=== PATIENT | female | born 1955 | race Caucasian/White ===

== ENCOUNTER → 2016-11-22 | Outpatient (CLI) | payer BC ==
[2014-11-11 11:03] VITALS: BP 120/62
== END ==
LOC: RAD 14:08
PROVIDERS: ATTEND Internal Medicine
DX: N64.59 Other signs and symptoms in breast (principal)
CPT/HCPCS: 76642

== ENCOUNTER 2022-09-04 12:09 | Observation (INO) ==
[2022-09-04] MEDS ORDERED: TUSSIONEX PENNKINETIC SUSP PO PRN (13:38)
[2022-09-04 14:14] VITALS: BMI 27.1
[2022-09-04 14:16] LABS: BASOPHILS % (AUTO) 0.6 % (0.2-1.0); EOSINOPHILS # (AUTO) 0.5 x10^3/uL (0.0-0.2); EOSINOPHILS % (AUTO) 9.3 % (0.9-2.9); HEMATOCRIT 37.3 % (36.0-47.0); HEMOGLOBIN 12.7 g/dL (12.0-16.0); LYMPHOCYTES # (AUTO) 2.8 X10^3/uL (1.3-2.9); LYMPHOCYTES % (AUTO) 49.2 % (21.0-51.0); MEAN CORPUSCULAR HEMOGLOBIN 29.8 pg (27.0-34.0); MEAN CORPUSCULAR HGB CONC 33.9 g/dL (33.0-35.0); MEAN PLATELET VOLUME 7.2 fL (7.4-11.0); MONOCYTES # (AUTO) 0.6 x10^3/uL (0.3-0.8); MONOCYTES % (AUTO) 10.1 % (0.0-13.0); NEUTROPHILS # (AUTO) 1.7 x10^3/uL (2.2-4.8); NEUTROPHILS % (AUTO) 30.8 % (42.0-75.0); RED BLOOD COUNT 4.24 X10^6/uL (3.5-5.4); WHITE BLOOD COUNT 5.6 X10^3/uL (3.6-10.0)
[2022-09-04] MEDS ORDERED: NS 1/2 1,000 ML IV 1,000 ML IV ONE (14:21)
[2022-09-04 14:33] LABS: ALANINE AMINOTRANSFERASE 16 Units/L (12-78); ALBUMIN 3.2 g/dL (3.4-5.0); ALKALINE PHOSPHATASE 66 Units/L (46-116); ASPARTATE AMINO TRANSFERASE 13 Units/L (15-37); BLOOD UREA NITROGEN 12 mg/dL (7-18); CALCIUM 8.5 mg/dL (8.5-10.1); CARBON DIOXIDE 28.3 mmol/L (21-32); CHLORIDE 105 mmol/L (98-107); COR CA(FOR HYPOALB) 9.1 mg/dL (8.5-10.1); CREATININE 0.68 mg/dL (0.55-1.02); SODIUM 141 mmol/L (136-145); TOTAL PROTEIN 6.4 g/dL (6.4-8.2); eGFR NON BLACK RACES > 60 (>60)
[2022-09-04] MEDS: VSL#3 PO SCH (14:53)
[2022-09-04] MEDS: NS 1/2 1,000 ML IV 1,000 ML IV SCH (14:53)
[2022-09-04] MEDS: ROBITUSSIN DM PO SCH ×3 (14:53→20:39)
[2022-09-04] MEDS: LEVAQUIN PREMIX IV 750 MG 750 MG/150 ML BAG IV SCH (14:54)
[2022-09-04] MEDS: PROVENTIL NEB TX 0.083% 2.5MG/ 3ML NEB SCH ×2 (16:25→20:27)
[2022-09-04] MEDS: PULMICORT NEB TX 0.5 MG NEB SCH (20:27)
[2022-09-04] MEDS: KLONOPIN TAB 1 MG PO SCH (20:39)
[2022-09-04] MEDS: PROTONIX INJ 40 MG VIAL IVP SCH (20:39)
[2022-09-05] MEDS ORDERED: K-DUR TAB 20 MEQ PO PRN (00:44)
[2022-09-05] MEDS ORDERED: KLOR-CON PO PRN (00:44)
[2022-09-05] MEDS ORDERED: K-RIDER 10 MEQ/NS 100 ML 10 MEQ/100 ML BAG IV PRN (00:44)
[2022-09-05] MEDS ORDERED: NS 1/2 1,000 ML IV 1,000 ML IV ONE ×2 (04:12→14:24)
[2022-09-05 04:53] LABS: BASOPHILS % (AUTO) 0.3 % (0.2-1.0); EOSINOPHILS # (AUTO) 0.4 x10^3/uL (0.0-0.2); EOSINOPHILS % (AUTO) 6.6 % (0.9-2.9); HEMATOCRIT 33.4 % (36.0-47.0); HEMOGLOBIN 11.6 g/dL (12.0-16.0); LYMPHOCYTES # (AUTO) 2.5 X10^3/uL (1.3-2.9); LYMPHOCYTES % (AUTO) 45.9 % (21.0-51.0); MEAN CORPUSCULAR HEMOGLOBIN 30.2 pg (27.0-34.0); MEAN CORPUSCULAR HGB CONC 34.7 g/dL (33.0-35.0); MEAN CORPUSCULAR VOLUME 87.1 fL (80.0-100.0); MEAN PLATELET VOLUME 7.4 fL (7.4-11.0); MONOCYTES # (AUTO) 0.4 x10^3/uL (0.3-0.8); MONOCYTES % (AUTO) 8.2 % (0.0-13.0); NEUTROPHILS # (AUTO) 2.1 x10^3/uL (2.2-4.8); RED BLOOD COUNT 3.83 X10^6/uL (3.5-5.4); RED CELL DISTRIBUTION WIDTH 13.7 % (11.6-16.5); WHITE BLOOD COUNT 5.5 X10^3/uL (3.6-10.0)
[2022-09-05] MEDS: NS 1/2 1,000 ML IV 1,000 ML IV SCH ×2 (05:00→17:14)
[2022-09-05 05:05] LABS: ALANINE AMINOTRANSFERASE 15 Units/L (12-78); ALBUMIN 2.8 g/dL (3.4-5.0); ALKALINE PHOSPHATASE 57 Units/L (46-116); ASPARTATE AMINO TRANSFERASE 12 Units/L (15-37); BLOOD UREA NITROGEN 7 mg/dL (7-18); CALCIUM 8.1 mg/dL (8.5-10.1); CARBON DIOXIDE 29.5 mmol/L (21-32); CHLORIDE 107 mmol/L (98-107); COR CA(FOR HYPOALB) 9.1 mg/dL (8.5-10.1); CREATININE 0.75 mg/dL (0.55-1.02); SODIUM 142 mmol/L (136-145); TOTAL PROTEIN 5.8 g/dL (6.4-8.2); eGFR NON BLACK RACES > 60 (>60)
[2022-09-05] MEDS: MAGNESIUM SULFATE 1 GRAM/100 mL PREMIX 1 G/100 ML BAG IV PRN ×2 (05:57→16:24)
--- NOTE | 2022-09-05 06:55 | RAD ---
HISTORYCough, pneumoniaSTUDYChest AP [id number]/26/2021FINDINGSHear t size is normal. Karlee are normal. Lung dennis are clear. No pleural effusions are identified. Bony thorax is unremarkable.IMPRESSIONNo significant abnormality identifiedElectronically signed by: TRISHA FARIAS (Sep 05, 2022 06:54:06)
--- NOTE | 2022-09-05 07:08 | RAD ---
HISTORYShortness of breathSTUDYChest AP [id number]/28/2023FINDINGSHear t size is normal. Karlee are normal. Lung dennis are clear. No pleural effusions are identified. Bony thorax is unremarkable.IMPRESSIONNo significant abnormality identifiedElectronically signed by: TRISHA FARIAS (Sep 05, 2022 07:06:54)
[2022-09-05] MEDS: VSL#3 PO SCH (08:02)
[2022-09-05] MEDS: LEVAQUIN PREMIX IV 750 MG 750 MG/150 ML BAG IV SCH (08:02)
[2022-09-05] MEDS: PROTONIX INJ 40 MG VIAL IVP SCH ×2 (08:02→20:15)
[2022-09-05] MEDS: ROBITUSSIN DM PO SCH ×4 (08:02→20:14)
[2022-09-05] MEDS: PULMICORT NEB TX 0.5 MG NEB SCH ×2 (08:30→20:44)
[2022-09-05] MEDS: PROVENTIL NEB TX 0.083% 2.5MG/ 3ML NEB SCH ×4 (08:31→20:44)
[2022-09-05] MEDS: LOVENOX INJ 40 MG SYR SC SCH (10:38)
--- NOTE | 2022-09-05 11:44 | DR.UPDATE ---
H&P Update Prescription drug monitoring program results: PDMP reviewed and no concerns identified H&P Reviewed: Yes Any changes to H&P?: Yes Changes noted:: WAS A DIRECT ADMISSION FOR TREATMENT OF PNEUMONIA, FAILED OUTPATIENT TREATMENT. SHE INITIALLY PRESENTED TO THE OFFICE ON 08/20 WITH COMPLAINTS OF PERSISTENT COUGH AND SHORTNESS OF BREATH. SHE WAS PRESCRIBED AUGMENTIN 875-125MG BID X 14 DAYS, A MEDROL DOSEPACK, AND AN INHALER. SHE WAS EVALUATED IN THE OFFICE ON 09/03/22 DUE TO WORSENING COUGH AND SHORTNESS OF BREATH. A CHEST CTA WAS OBTAINED AT THAT TIME AND REVEALED: Mild ground-glass infiltrates in the right upper lobe, correlate for pneumonia. No acute pulmonary embolism. SHE FOLLOWED UP IN THE OFFICE ON 09/04/22. DECISION WAS MADE AT THAT TIME TO ADMIT PATIENT TO THE HOSPITAL DUE TO FAILED OUTPATIENT TREATMENT OF PNEUMONIA. HER PMH INCLUDES: HYPERLIPIDEMIA, INSOMNIA, GERD, HYPOTHYROIDISM, COPD. ON ARRIVAL TO THE HOSPITAL, VITALS WERE: 98.1-69-20-98%-138/67. LABS WERE OBTAINED. WBC 5.6, RBC 4.24, HGB 12.7, HCT 37.3, PLT COUNT 234, SODIUM 141, POTASSIUM 3.5, CHLORIDE 105, BUN 12, CREATININE 0.68, GLUCOSE 77, CALCIUM 8.5, TOTAL BILI 0.40, AST 13, ALT 16, ALK PHOS 66, TOTAL PROTEIN 6.4, ALBUMIN 3.2. A RESPIRATORY VIRAL PANEL WAS SET UP. BLOOD AND SPUTUM CULTURES WERE ALSO SET UP. SHE WAS STARTED ON NORMAL SALINE AT 75 ML/HR, LEVAQUIN 750MG IV DAILY, PROTONIX 40MG IV BID, ROBITUSSIN DM 10ML QID, TUSSIONEX 5ML Q12H PRN, PULMICORT NEB TX BID, PROVENTIL NEBS QID, LOVENOX 40MG SC DAILY, AND THE POTASSIUM AND MAGNESIUM PROTOCOLS. WE WILL REVIEW HER HOME MEDICATIONS AND RESUME APPROPRIATE. OTHERWISE, WE WILL FOLLOW-UP WITH AM LABS AND CONTINUE TO MONITOR. TIME SPENT ON CLINICAL ASSESSMENT, REVIWING LABS AND IMAGING, DECISION MAKING, AND DOCUMENTATION GREATER THAN 75 MINUTES. Patient was examined?: Yes
[2022-09-05] MEDS: FLONASE NASAL SPRAY ENOSTRIL SCH ×2 (13:43→20:15)
[2022-09-05] MEDS: LINZESS PO SCH (13:45)
[2022-09-05] MEDS: SYNTHROID 50 mcg TAB PO SCH (13:45)
[2022-09-05] MEDS: VITAMIN D3 125 mcg (5,000 UNITS) PO SCH (13:45)
[2022-09-05] MEDS: PEPCID TAB 20 MG PO SCH ×2 (13:45→20:15)
[2022-09-05] MEDS ORDERED: TYLENOL 325 MG TAB PO PRN (13:54)
[2022-09-05] MEDS ORDERED: CRESTOR TAB 10 MG PO ONE (19:32)
[2022-09-05] MEDS: KLONOPIN TAB 1 MG PO SCH (20:15)
[2022-09-05] MEDS ORDERED: CRESTOR TAB 10 MG PO SCH (21:00)
[2022-09-06 05:02] LABS: BASOPHILS % (AUTO) 0.2 % (0.2-1.0); EOSINOPHILS # (AUTO) 0.2 x10^3/uL (0.0-0.2); EOSINOPHILS % (AUTO) 5.2 % (0.9-2.9); HEMATOCRIT 34.5 % (36.0-47.0); LYMPHOCYTES # (AUTO) 2.4 X10^3/uL (1.3-2.9); LYMPHOCYTES % (AUTO) 52.7 % (21.0-51.0); MEAN CORPUSCULAR HEMOGLOBIN 30.6 pg (27.0-34.0); MEAN CORPUSCULAR HGB CONC 34.7 g/dL (33.0-35.0); MEAN CORPUSCULAR VOLUME 88.2 fL (80.0-100.0); MEAN PLATELET VOLUME 7.4 fL (7.4-11.0); MONOCYTES # (AUTO) 0.3 x10^3/uL (0.3-0.8); MONOCYTES % (AUTO) 7.4 % (0.0-13.0); NEUTROPHILS # (AUTO) 1.6 x10^3/uL (2.2-4.8); NEUTROPHILS % (AUTO) 34.5 % (42.0-75.0); RED BLOOD COUNT 3.91 X10^6/uL (3.5-5.4); RED CELL DISTRIBUTION WIDTH 13.6 % (11.6-16.5); WHITE BLOOD COUNT 4.6 X10^3/uL (3.6-10.0)
[2022-09-06 05:17] LABS: ALANINE AMINOTRANSFERASE 16 Units/L (12-78); ALKALINE PHOSPHATASE 60 Units/L (46-116); ASPARTATE AMINO TRANSFERASE 13 Units/L (15-37); BLOOD UREA NITROGEN 8 mg/dL (7-18); CARBON DIOXIDE 29.8 mmol/L (21-32); CHLORIDE 106 mmol/L (98-107); COR CA(FOR HYPOALB) 8.8 mg/dL (8.5-10.1); CREATININE 0.71 mg/dL (0.55-1.02); SODIUM 141 mmol/L (136-145); TOTAL PROTEIN 6.1 g/dL (6.4-8.2); eGFR NON BLACK RACES > 60 (>60)
--- NOTE | 2022-09-06 07:37 | RAD ---
HISTORYBronchopneumoniaSTUDYChest AP [id number]/29/2023FINDINGSHear t size is normal. Karlee are normal. Lung dennis are clear. No pleural effusions are identified. Bony thorax is unremarkable.IMPRESSIONNo significant abnormality identifiedElectronically signed by: TRISHA FARIAS (Sep 06, 2022 07:35:38)
[2022-09-06] MEDS: NS 1/2 1,000 ML IV 1,000 ML IV SCH (08:04)
[2022-09-06] MEDS: VSL#3 PO SCH (08:05)
[2022-09-06] MEDS: LINZESS PO SCH (08:05)
[2022-09-06] MEDS: LEVAQUIN PREMIX IV 750 MG 750 MG/150 ML BAG IV SCH (08:05)
[2022-09-06] MEDS: PEPCID TAB 20 MG PO SCH (08:06)
[2022-09-06] MEDS: VITAMIN D3 125 mcg (5,000 UNITS) PO SCH (08:06)
[2022-09-06] MEDS: LOVENOX INJ 40 MG SYR SC SCH (08:06)
[2022-09-06] MEDS: SYNTHROID 50 mcg TAB PO SCH (08:06)
[2022-09-06] MEDS: PROTONIX INJ 40 MG VIAL IVP SCH (08:06)
[2022-09-06] MEDS: ROBITUSSIN DM PO SCH (08:06)
[2022-09-06] MEDS: FLONASE NASAL SPRAY ENOSTRIL SCH (08:07)
[2022-09-06] MEDS: PULMICORT NEB TX 0.5 MG NEB SCH (08:28)
[2022-09-06] MEDS: PROVENTIL NEB TX 0.083% 2.5MG/ 3ML NEB SCH (08:28)
[2022-09-06 08:33] VITALS: BP 123/58
[2022-09-06] MEDS ORDERED: ZINC SULFATE PO SCH (09:00)
== END 2022-09-06 11:20 | disposition home or self-care (01) ==
LOC: ICU
PROVIDERS: ADMIT Internal Medicine; ATTEND Internal Medicine

== ENCOUNTER 2022-11-01 11:40 | Observation (INO) ==
[2022-11-01] MEDS ORDERED: TUSSIONEX PENNKINETIC SUSP PO PRN (12:40)
[2022-11-01 13:17] LABS: BASOPHILS % (AUTO) 0.5 % (0.2-1.0); EOSINOPHILS # (AUTO) 0.1 x10^3/uL (0.0-0.2); EOSINOPHILS % (AUTO) 0.7 % (0.9-2.9); HEMATOCRIT 34.9 % (36.0-47.0); HEMOGLOBIN 11.9 g/dL (12.0-16.0); LYMPHOCYTES # (AUTO) 2.5 X10^3/uL (1.3-2.9); LYMPHOCYTES % (AUTO) 26.3 % (21.0-51.0); MEAN CORPUSCULAR HEMOGLOBIN 29.9 pg (27.0-34.0); MEAN CORPUSCULAR HGB CONC 34.1 g/dL (33.0-35.0); MEAN CORPUSCULAR VOLUME 87.6 fL (80.0-100.0); MEAN PLATELET VOLUME 7.6 fL (7.4-11.0); MONOCYTES % (AUTO) 10.4 % (0.0-13.0); NEUTROPHILS # (AUTO) 5.9 x10^3/uL (2.2-4.8); NEUTROPHILS % (AUTO) 62.1 % (42.0-75.0); PLATELET COUNT 184 X10^3/uL (150.0-450.0); RED BLOOD COUNT 3.98 X10^6/uL (3.5-5.4); RED CELL DISTRIBUTION WIDTH 13.6 % (11.6-16.5); WHITE BLOOD COUNT 9.5 X10^3/uL (3.6-10.0)
[2022-11-01 13:30] LABS: ALANINE AMINOTRANSFERASE 15 Units/L (12-78); ALBUMIN 3.2 g/dL (3.4-5.0); ALKALINE PHOSPHATASE 53 Units/L (46-116); ASPARTATE AMINO TRANSFERASE 17 Units/L (15-37); BLOOD UREA NITROGEN 13 mg/dL (7-18); CALCIUM 7.7 mg/dL (8.5-10.1); CARBON DIOXIDE 30.2 mmol/L (21-32); CHLORIDE 99 mmol/L (98-107); COR CA(FOR HYPOALB) 8.3 mg/dL (8.5-10.1); CREATININE 1.05 mg/dL (0.55-1.02); GLUCOSE 107 mg/dL (65-99); POTASSIUM 3.2 mmol/L (3.5-5.1); SODIUM 137 mmol/L (136-145); TOTAL PROTEIN 6.2 g/dL (6.4-8.2); eGFR NON BLACK RACES 56 (>60)
[2022-11-01] MEDS ORDERED: NS 1/2 1,000 ML IV 1,000 ML IV ONE (13:39)
[2022-11-01] MEDS: LEVAQUIN PREMIX IV 750 MG 750 MG/150 ML BAG IV SCH (13:54)
[2022-11-01] MEDS: NS 1/2 1,000 ML IV 1,000 ML IV SCH (13:54)
[2022-11-01] MEDS: VSL#3 PO SCH (13:55)
[2022-11-01] MEDS: ROBITUSSIN DM PO SCH ×3 (13:56→21:50)
[2022-11-01 14:36] VITALS: BMI 27.3
[2022-11-01] MEDS ORDERED: DUONEB 0.5 MG/3 MG (3 mL) NEB ONE (16:31)
[2022-11-01] MEDS: DUONEB 0.5 MG/3 MG (3 mL) NEB SCH (16:32)
[2022-11-01] MEDS: FORTAZ or TAZICEF VIAL INJ 1 G in NS 100 ML IV 100 ML IV SCH ×2 (17:26→22:12)
[2022-11-01] MEDS ORDERED: POTASSIUM CHL 60 MEQ/NS 0.45% 500 ML IV PRN (19:25)
[2022-11-01] MEDS ORDERED: POTASSIUM CHLORIDE LIQ 20 MEQ UDC PO PRN (19:25)
[2022-11-01] MEDS ORDERED: MICRO K EXTEN CAP 10 MEQ PO PRN (19:25)
[2022-11-01] MEDS ORDERED: POTASSIUM CHL 40 MEQ/NS 0.45% 500 ML IV PRN (19:25)
[2022-11-01] MEDS ORDERED: K-RIDER 10 MEQ/NS 100 ML 10 MEQ/100 ML BAG IV PRN (19:25)
[2022-11-01] MEDS ORDERED: KLOR-CON PO PRN (19:25)
[2022-11-01] MEDS: K-DUR TAB 20 MEQ PO PRN (20:02)
[2022-11-01] MEDS: MAGNESIUM SULFATE 1 GRAM/100 mL PREMIX 1 G/100 ML BAG IV PRN ×3 (20:03→23:29)
[2022-11-01] MEDS: PULMICORT NEB TX 0.5 MG NEB SCH (21:02)
[2022-11-01] MEDS ORDERED: TYLENOL 325 MG TAB PO PRN (21:30)
[2022-11-02] MEDS: DUONEB 0.5 MG/3 MG (3 mL) NEB SCH ×6 (00:40→18:48)
[2022-11-02] MEDS: MAGNESIUM SULFATE 1 GRAM/100 mL PREMIX 1 G/100 ML BAG IV PRN (00:50)
--- NOTE | 2022-11-02 01:26 | RAD ---
HISTORYPNEUMONIASTUDYCHEST, PA/LAT ADULTCOMPARISONMarch 2022TECHNIQUEPA and lateral projections, 2 imagesFINDINGSCardiac silhouette is normal in size and configuration.Pulmonary vascular sizes are normal.No effusion.No focal airspace disease.No pneumothorax.No acute osseous abnormalityIMPRESSIONNo imaging findings of acute cardiopulmonary disease.Electronically signed by: Alfred Christina (November 02, 2022 01:25:09)
[2022-11-02] MEDS: NS 1/2 1,000 ML IV 1,000 ML IV SCH ×5 (04:28→21:54)
[2022-11-02 05:12] LABS: BASOPHILS % (AUTO) 0.2 % (0.2-1.0); EOSINOPHILS # (AUTO) 0.2 x10^3/uL (0.0-0.2); EOSINOPHILS % (AUTO) 4.8 % (0.9-2.9); HEMATOCRIT 36.3 % (36.0-47.0); HEMOGLOBIN 12.7 g/dL (12.0-16.0); LYMPHOCYTES # (AUTO) 1.5 X10^3/uL (1.3-2.9); LYMPHOCYTES % (AUTO) 37.9 % (21.0-51.0); MEAN CORPUSCULAR HEMOGLOBIN 30.6 pg (27.0-34.0); MEAN CORPUSCULAR HGB CONC 35.1 g/dL (33.0-35.0); MEAN CORPUSCULAR VOLUME 87.1 fL (80.0-100.0); MEAN PLATELET VOLUME 7.8 fL (7.4-11.0); MONOCYTES # (AUTO) 0.5 x10^3/uL (0.3-0.8); MONOCYTES % (AUTO) 12.8 % (0.0-13.0); NEUTROPHILS # (AUTO) 1.8 x10^3/uL (2.2-4.8); NEUTROPHILS % (AUTO) 44.3 % (42.0-75.0); PLATELET COUNT 165 X10^3/uL (150.0-450.0); RED BLOOD COUNT 4.16 X10^6/uL (3.5-5.4); RED CELL DISTRIBUTION WIDTH 13.7 % (11.6-16.5)
[2022-11-02] MEDS ORDERED: NS 1/2 1,000 ML IV 1,000 ML IV ONE ×2 (05:17→21:53)
[2022-11-02 05:25] LABS: ALANINE AMINOTRANSFERASE 20 Units/L (12-78); ALBUMIN 3.1 g/dL (3.4-5.0); ALKALINE PHOSPHATASE 54 Units/L (46-116); ASPARTATE AMINO TRANSFERASE 22 Units/L (15-37); BLOOD UREA NITROGEN 7 mg/dL (7-18); CALCIUM 7.9 mg/dL (8.5-10.1); CARBON DIOXIDE 32.2 mmol/L (21-32); CHLORIDE 103 mmol/L (98-107); COR CA(FOR HYPOALB) 8.6 mg/dL (8.5-10.1); CREATININE 0.83 mg/dL (0.55-1.02); GLUCOSE 96 mg/dL (65-99); MAGNESIUM 2.3 mg/dL (2.0-2.9); POTASSIUM 3.5 mmol/L (3.5-5.1); SODIUM 140 mmol/L (136-145); TOTAL PROTEIN 6.5 g/dL (6.4-8.2); eGFR NON BLACK RACES > 60 (>60)
[2022-11-02] MEDS: FORTAZ or TAZICEF VIAL INJ 1 G in NS 100 ML IV 100 ML IV SCH ×3 (05:37→21:22)
[2022-11-02] MEDS ORDERED: K-RIDER 10 MEQ/NS 100 ML 10 MEQ/100 ML BAG IV PRN (07:00)
[2022-11-02] MEDS ORDERED: K-DUR TAB 20 MEQ PO PRN (07:00)
[2022-11-02] MEDS ORDERED: POTASSIUM CHL 60 MEQ/NS 0.45% 500 ML IV PRN (07:00)
[2022-11-02] MEDS ORDERED: POTASSIUM CHLORIDE LIQ 20 MEQ UDC PO PRN (07:00)
[2022-11-02] MEDS ORDERED: MICRO K EXTEN CAP 10 MEQ PO PRN (07:00)
[2022-11-02] MEDS ORDERED: KLOR-CON PO PRN (07:00)
[2022-11-02] MEDS ORDERED: POTASSIUM CHL 40 MEQ/NS 0.45% 500 ML IV PRN (07:00)
[2022-11-02] MEDS: PULMICORT NEB TX 0.5 MG NEB SCH ×2 (08:40→20:11)
[2022-11-02] MEDS: VSL#3 PO SCH (08:50)
[2022-11-02] MEDS: K-DUR TAB 20 MEQ PO PRN (08:50)
[2022-11-02] MEDS: LEVAQUIN PREMIX IV 750 MG 750 MG/150 ML BAG IV SCH (08:51)
[2022-11-02] MEDS: LOVENOX INJ 40 MG SYR SC SCH (08:51)
[2022-11-02] MEDS: ROBITUSSIN DM PO SCH ×4 (08:51→20:46)
--- NOTE | 2022-11-02 10:22 | DR.H&P ---
H&P - History & Physical for Day of: H&P Date: 11/01/22 - Chief Complaint Chief Complaint: COUGH, SOB, FEVER, WEAKNESS - History of Present Illness History of Present Illness: IS A 67 YEAR OLD PATIENT OF OURS. SHE PRESENTED TO THE HOSPITAL A DIRECT ADMISSION FOR TREATMENT OF ASTHMATIC BRONCHITIS. SHE COMPLAINS OF PRODUCTIVE COUGH, SHORTNESS OF BREATH, FEVER, WEAKNESS, AND UNSTEADY GAIT FOR THE PAST 3-4 DAYS. SHE HAS RECENTLY FINISHED A COURSE OF CIPRO 500MG BID X 10 DAYS, TESSALON PERLES 200MG TID PRN COUGH, FLONASE, AND NEBULIZER TREATMENTS. SHE REPORTS HAVING SLIGHT IMPROVEMENT IN SYMPTOMS BEFORE THEY FLARED UP AGAIN. SHE HAS A PMH OF ASTHMA, COPD, GERD, HIATAL HERNIA, HYPOTHYROIDISM, CHOLECYSTECTOMY, AND HYSTERECTOMY. ON ARRIVAL TO THE HOSPITAL, VITALS WERE 98.6-88-20-94%-102/56. SHE WAS PLACED ON OXYGEN VIA NASAL CANNULA AT 2 LPM. LABS WERE OBTAINED. WBC 9.5, RBC 3.98, HGB 11.9, HCT 34.9, PLT COUNT 184, SODIUM 137, POTASSIUM 3.2, CHLORIDE 99, BUN 13, CREATININE 1.05, GLUCOSE 107, CALCIUM 7.7, MAGNESIUM 1.3, AST 17, ALT 15, ALK PHOS 53, TOTAL PROTEIN 6.2, ALBUMIN 3.2. WE SET UP A RESPIRATORY AIT PANEL. BLOOD AND SPUTUM CULTURES WERE ALSO SET UP. A CHEST XRAY WAS OBTAINED AND REVEALED: Cardiac silhouette is normal in size and configuration. Pulmonary vascular sizes are normal. No effusion. No focal airspace disease. No pneumothorax. No acute osseous abnormality. SHE WAS STARTED ON NS AT 75 ML/HR, LEVAQUIN 750MG IV DAILY, FORTAZ 1G IV Q8H, DUONEBS Q6H, PULMICORT NEBS BID, RUSSIONEX 5ML PO Q12H PRN, ROBITUSSIN DM 10ML QID, LOVENOX 40MG SC DAILY, AND THE POTASSIUM AND MAGNESIUM PROTOCOLS. WE WILL RESUME HER HOME MEDICATIONS OF ZYRTEC, VITAMIN D3, KLONOPIN, FLONASE, SYNTHROID, PROTONIX, REQUIP, CRESTOR, AND ZINC. OTHERWISE, WE WILL FOLLOW-UP WITH AM LABS AND CHEST XRAY AND CONTINUE TO MONITOR. TIME SPENT ON CLINICAL ASSESSMENT, REVIWING LABS AND IMAGING, DECISION MAKING, AND DOCUMENTATION GREATER THAN 75 MINUTES. - Past Medical History Past Medical History: Asthma, COPD - Past Surgical History Surgical History: Cholecystectomy, Hysterectomy, Other - Family History Family Medical History: Diabetes Mellitus, Cancer, [place], Hypertension - Social History Does patient currently use any type of tobacco product: No (quit 25 years ago) Have you used tobacco products in the last 12 months: No Type of Tobacco Use: None Does any household member use tobacco: No Alcohol Use: None Drug Use: None - Medications Home Medications: Home Medications Medication Instructions Recorded Confirmed Type fluticasone propionate 50 2 spray intranasal BID 09/03/22 11/01/22 History mcg/actuation nasal spray,suspension albuterol sulfate 90 mcg/actuation 2 puff inhalation BID PRN 09/04/22 11/01/22 History aerosol inhaler (Ventolin HFA) Shortness Of Breath Or Wheezing cholecalciferol (vitamin D3) 125 125 mcg PO QDAY 09/04/22 11/01/22 History mcg (5,000 unit) tablet (Vitamin D3) clonazepam 2 mg tablet 2 mg PO HS 09/04/22 11/01/22 History fluticasone fur. 100 mcg-umeclid 1 inh inhalation QDAY 09/04/22 11/01/22 History 62.5 mcg-vilant 25 mcg inhalat.powder (Trelegy Ellipta) levothyroxine 50 mcg tablet 50 mcg PO QDAY 09/04/22 11/01/22 History pantoprazole 40 mg tablet,delayed 40 mg PO BID indigestion 09/04/22 11/01/22 History release rosuvastatin 5 mg tablet 5 mg PO HS 09/05/22 11/01/22 History cetirizine 10 mg tablet 10 mg PO QPM 11/01/22 11/01/22 History dextroamphetamine-amphetamine 20 1 tab PO BID PRN 11/01/22 11/01/22 History mg tablet ipratropium 0.5 mg-albuterol 3 mg 1 neb NEB TID PRN Shortness Of 11/01/22 11/01/22 History (2.5 mg base)/3 mL nebulization Breath Or Wheezing soln ropinirole 1 mg tablet 1 mg PO QPM 11/01/22 11/01/22 History zinc 50 mg tablet 50 mg PO DAILY 11/01/22 11/01/22 History - Review of Systems Constitutional: Fever, Weakness Eyes: No Symptoms Reported ENT: No Symptoms Reported Respiratory: Cough, Shortness of Breath, SOB with Excertion, Wheezing Cardiovascular: No Symptoms Reported Gastrointestinal: No Symptoms Reported Genitourinary: No Symptoms Reported Musculoskeletal: No Symptoms Reported Skin: No Symptoms Reported Neurological: Weakness - Physical Exam Vital Signs: Temperature 99.5 F Temperature 98.6 F Pulse Rate [Left Brachial] 88 Pulse Rate 76 Pulse Rate 88 Respiratory Rate 18 Respiratory Rate 20 Blood Pressure [Left Arm] 124/60 Blood Pressure 152/70 O2 Sat by Pulse Oximetry 96 O2 Sat by Pulse Oximetry 94 Oriented: Normal Eyes: Normal Ear: Normal Nose: Normal Throat: Normal Respiratory: Wheezes Throughout Cardiovascular: Normal : Normal Auscultation: Bowel Sounds: Normal Palpation: Normal Tenderness: Normal Skin: Normal Musculoskeletal: Normal Psychiatric: Normal Mood Description: Calm Affect: Normal Speech Pattern: Clear - Assessment/Plan (1) Asthmatic bronchitis with acute exacerbation Qualifiers: Asthma severity: moderate Asthma persistence: persistent Qualified Code(s): J45.41 - Moderate persistent asthma with (acute) exacerbation Status: Acute Plan: ADMIT, NS AT 75 ML/HR, LEVAQUIN 750MG IV DAILY, FORTAZ 1G IV Q8H, DUONEBS Q6H, PULMICORT NEBS BID, TUSSIONEX 5ML PO Q12H PRN, ROBITUSSIN DM 10ML QID, PROBIOTICS, LOVENOX 40MG SC DAILY, AND THE POTASSIUM AND MAGNESIUM PROTOCOLS. RESUME HOME MEDS (2) Allergic rhinitis Qualifiers: Allergic rhinitis trigger: unspecified Status: Chronic (3) Insomnia Qualifiers: Insomnia type: primary Qualified Code(s): F51.01 - Primary insomnia Status: Chronic (4) Hypothyroidism Qualifiers: Hypothyroidism type: acquired Qualified Code(s): E03.9 - Hypothyroidism, unspecified Status: Chronic (5) GERD (gastroesophageal reflux disease) Qualifiers: Esophagitis presence: esophagitis presence not specified Qualified Code(s): K21.9 - Gastro-esophageal reflux disease without esophagitis Status: Chronic (6) Hyperlipidemia Qualifiers: Hyperlipidemia type: mixed hyperlipidemia Qualified Code(s): E78.2 - Mixed hyperlipidemia Status: Chronic (7) Restless leg syndrome Status: Chronic - Allergies Allergies/Adverse Reactions: Allergies Allergy/AdvReac Type Severity Reaction Status Date / Time oxycodone [From Percocet] Allergy Verified 06/14/22 08:23
[2022-11-02] MEDS: VITAMIN D3 125 mcg (5,000 UNITS) PO SCH (10:59)
[2022-11-02] MEDS: FLONASE NASAL SPRAY ENOSTRIL SCH ×2 (10:59→20:44)
[2022-11-02] MEDS: SYNTHROID 50 mcg TAB PO SCH (10:59)
[2022-11-02] MEDS: PROTONIX TAB 40 MG PO SCH ×2 (10:59→20:43)
[2022-11-02] MEDS: ZINC SULFATE PO SCH (10:59)
[2022-11-02] MEDS ORDERED: ZyrTEC TAB 10 MG PO SCH (21:00)
[2022-11-02] MEDS ORDERED: CRESTOR TAB 10 MG PO SCH (21:00)
[2022-11-02] MEDS ORDERED: KLONOPIN TAB 1 MG PO SCH (21:00)
[2022-11-02] MEDS ORDERED: REQUIP PO SCH (21:00)
[2022-11-03] MEDS: DUONEB 0.5 MG/3 MG (3 mL) NEB SCH ×2 (00:05→05:05)
[2022-11-03 04:40] VITALS: PULSE 80
[2022-11-03] MEDS: FORTAZ or TAZICEF VIAL INJ 1 G in NS 100 ML IV 100 ML IV SCH (05:01)
[2022-11-03 05:30] LABS: BASOPHILS % (AUTO) 0.8 % (0.2-1.0); EOSINOPHILS # (AUTO) 0.2 x10^3/uL (0.0-0.2); HEMATOCRIT 33.1 % (36.0-47.0); HEMOGLOBIN 11.6 g/dL (12.0-16.0); LYMPHOCYTES # (AUTO) 1.7 X10^3/uL (1.3-2.9); LYMPHOCYTES % (AUTO) 45.8 % (21.0-51.0); MEAN CORPUSCULAR HEMOGLOBIN 30.2 pg (27.0-34.0); MEAN CORPUSCULAR HGB CONC 35.2 g/dL (33.0-35.0); MONOCYTES # (AUTO) 0.4 x10^3/uL (0.3-0.8); MONOCYTES % (AUTO) 11.1 % (0.0-13.0); NEUTROPHILS # (AUTO) 1.4 x10^3/uL (2.2-4.8); NEUTROPHILS % (AUTO) 38.3 % (42.0-75.0); PLATELET COUNT 167 X10^3/uL (150.0-450.0); RED BLOOD COUNT 3.84 X10^6/uL (3.5-5.4); RED CELL DISTRIBUTION WIDTH 13.8 % (11.6-16.5); WHITE BLOOD COUNT 3.8 X10^3/uL (3.6-10.0)
[2022-11-03 05:46] LABS: ALANINE AMINOTRANSFERASE 17 Units/L (12-78); ALBUMIN 2.8 g/dL (3.4-5.0); ALKALINE PHOSPHATASE 42 Units/L (46-116); ASPARTATE AMINO TRANSFERASE 20 Units/L (15-37); BLOOD UREA NITROGEN 5 mg/dL (7-18); CALCIUM 7.8 mg/dL (8.5-10.1); CARBON DIOXIDE 29.6 mmol/L (21-32); CHLORIDE 105 mmol/L (98-107); COR CA(FOR HYPOALB) 8.8 mg/dL (8.5-10.1); GLUCOSE 91 mg/dL (65-99); POTASSIUM 3.6 mmol/L (3.5-5.1); SODIUM 140 mmol/L (136-145); TOTAL PROTEIN 5.8 g/dL (6.4-8.2); eGFR NON BLACK RACES > 60 (>60)
[2022-11-03] MEDS: NS 1/2 1,000 ML IV 1,000 ML IV SCH (07:03)
[2022-11-03 07:57] VITALS: BP 113/56; TEMP 99; O2SAT 95
--- NOTE | 2022-11-03 08:15 | RAD ---
HISTORYsob asthmatic bronchitisSTUDYCHEST, 1 [id number]/25/2023.FINDINGSThe trachea is midline. The cardiac silhouette is is within normal limits in size. The lungs are clear without focal infiltrate or effusion. The bony thorax is unremarkable.IMPRESSIONNo acute cardiopulmonary findings .Electronically signed by: VIVIAN GRIMALDO (November 03, 2022 08:13:11)
[2022-11-03] MEDS: PULMICORT NEB TX 0.5 MG NEB SCH (08:50)
[2022-11-03] MEDS: FLONASE NASAL SPRAY ENOSTRIL SCH (09:57)
[2022-11-03] MEDS: PROTONIX TAB 40 MG PO SCH (09:57)
[2022-11-03] MEDS: LOVENOX INJ 40 MG SYR SC SCH (09:57)
[2022-11-03] MEDS: ROBITUSSIN DM PO SCH (09:57)
[2022-11-03] MEDS: VITAMIN D3 125 mcg (5,000 UNITS) PO SCH (09:57)
[2022-11-03] MEDS: SYNTHROID 50 mcg TAB PO SCH (09:57)
[2022-11-03] MEDS: LEVAQUIN PREMIX IV 750 MG 750 MG/150 ML BAG IV SCH (09:57)
[2022-11-03] MEDS: VSL#3 PO SCH (09:58)
[2022-11-03] MEDS: ZINC SULFATE PO SCH (09:58)
== END 2022-11-03 12:26 | disposition home or self-care (01) ==
LOC: MED/SURG
PROVIDERS: ADMIT Internal Medicine; ATTEND Internal Medicine
DX: K21.9 Gastro-esophageal reflux disease without esophagitis; J44.9 Chronic obstructive pulmonary disease, unspecified; J45.41 Moderate persistent asthma with (acute) exacerbation; G25.81 Restless legs syndrome; R26.81 Unsteadiness on feet; E83.42 Hypomagnesemia; E87.6 Hypokalemia; E03.8 Other specified hypothyroidism; R06.02 Shortness of breath; E78.2 Mixed hyperlipidemia; F51.01 Primary insomnia; R53.1 Weakness; Z20.822 Contact with and (suspected) exposure to COVID-19